=== PATIENT | male | born 1975 | race Two or more races ===

== ENCOUNTER 2025-03-11 07:05 | Emergency (ER) | payer SELFPAY ==
[2025-03-11 07:27] VITALS: BP 128/74; PULSE 76; RESP 16; TEMP 37.2; O2SAT 96; BMI 28.5
--- NOTE | 2025-03-11 07:38 | PD.EDWOUND ---
ED Wound/Laceration-RME/HPI General Chief Complaint: Wound/Laceration Stated Complaint: LEFT ARM LACERATION WHILE AT WORK Time Seen by Provider: 03/11/25 07:08 Source: patient Arrival date/time: 03/11/25 07:05 49-year-old male with no known medical history presents to the emergency room with a chief complaint of a laceration to his left forearm that occurred 30 minutes ago while at work. Mode of arrival: ambulatory Limitations: no limitations Related Data Previous Rx's ?Medication ?Instructions ?Recorded Albuterol Sulfate/Ipratropium NEB 3 ml inhalation [id number] 10 days ##0 09/06/17 * (DUONEB *) Amylase/Lipase/Protease 1 cap PO TIDWM ##14 09/06/17 Cholestyramine/Sucrose 1 pkt PO QDAY ##28 09/06/17 (Cholestyramine Packet) ferrous sulfate 325 mg (65 mg 325 mg PO WBR #28 tabs 09/06/17 iron) tablet,delayed release insulin glargine 100 unit/mL 25 unit (0.25 mL) subcut BID #10 09/06/17 subcutaneous solution (Lantus vials U-100 Insulin) insulin regular human 100 unit/mL 0 unit (0 mL) subcut Q6HR #6 units 09/06/17 injection solution (Novolin R Regular U-100 Insulin) metoprolol tartrate 25 mg tablet 75 mg (3 x 25 mg) PO BID #28 tabs 09/06/17 Allergies Allergy/AdvReac Type Severity Reaction Status Date / Time No Known Allergies Allergy Verified 03/11/25 07:06 Review of Systems Review of Systems Systems Reviewed: All systems reviewed, normal except as documented Constitutional Constitutional: Reports system reviewed and no additional complaints, except as documented, Denies fatigue, Denies fever(s), Denies headache(s) and Denies weakness Eyes Eyes: Reports system reviewed and no additional complaints, except as documented, Denies blurry vision and Denies change in vision ENT Ears, Nose, Mouth, and Throat: Reports system reviewed and no additional complaints, except as documented, Denies otalgia, Denies headache(s), Denies nasal congestion, Denies throat swelling and Denies vertigo Cardiovascular Cardiovascular: Reports system reviewed and no additional complaints, except as documented, Denies chest pain, Denies dyspnea and Denies dyspnea on exertion Respiratory Respiratory: Reports system reviewed and no additional complaints, except as documented, Denies chest congestion, Denies cough, Denies dyspnea, Denies dyspnea on exertion and Denies wheezing Gastrointestinal Gastrointestinal: Reports system reviewed and no additional complaints, except as documented, Denies abdominal pain, Denies cramping, Denies nausea and Denies vomiting Genitourinary Genitourinary: Reports system reviewed and no additional complaints, except as documented, Denies dysuria and Denies hematuria Musculoskeletal Musculoskeletal: Reports system reviewed and no additional complaints, except as documented and Denies back pain Integumentary/Breasts Skin/Breast: Reports system reviewed and no additional complaints, except as documented and Reports wounds Neurologic Neurologic: Reports system reviewed and no additional complaints, except as documented, Denies confusion, Denies headache(s), Denies lack of coordination, Denies vertigo and Denies weakness Psychiatric Psychiatric: Reports system reviewed and no additional complaints, except as documented, Denies anxiety, Denies confusion, Denies depression, Denies paranoia, Denies suicidal ideation and Denies tactile hallucinations Endocrine Endocrine: Reports system reviewed and no additional complaints, except as documented and Denies fatigue Hematologic/Lymphatic Hematologic/Lymphatic: Reports system reviewed and no additional complaints, except as documented and Denies lymphadenopathy Allergic/Immunologic Allergic/Immunologic: Reports system reviewed and no additional complaints, except as documented, Denies throat swelling, Denies urticaria and Denies wheezing Past Medical History Social History SMOKING STATUS: Never smoker ED Exam General Limitations: Present no limitations General appearance: Present alert and in no apparent distress Head Head exam: Present atraumatic Eye Eye exam: Present normal appearance, PERRL and EOMI ENT ENT exam: Present normal exam, normal oropharynx and mucous membranes moist Neck Neck exam: Present normal inspection, full ROM and trachea midline Chest Chest inspection: Present normal inspection and symmetric chest wall rise Respiratory Respiratory exam: Present normal lung sounds bilaterally Cardiovascular Cardiovascular exam: Present regular rate, normal rhythm and normal heart sounds Abdominal Exam Abdominal exam: Present soft and normal bowel sounds Extremities Exam Extremities exam: Present normal inspection and full ROM Back Exam Back exam: Present normal inspection and full ROM Neurological Exam Neurological exam: Present alert, oriented X3 and CN II-XII intact Psychiatric Psychiatric exam: Present normal affect and normal mood Skin Skin exam: Present warm, dry, intact and normal color Expanded Skin Exam Type of lesion: Present laceration Distribution: Present LUE Description: Present tenderness Body image:  1. 2.5 cm laceration to the left forearm Course Quality Measures none Orders Category Date Time Status Set Up Suture Tray STAT Care 03/11/25 07:40 Active Wound Care NOW Care 03/11/25 07:40 Active Lidocaine 1% 20 ml [Xylocaine 1% 20 ML] Med 03/11/25 07:40 Discontinued 20 ml INFL X1 ONE TET,DIP/PERT AC (Adult)-Tdap [Boostrix Adult (Tdap) Med 03/11/25 07:40 Discontinued Vacc] 0.5 ml IMI .ONCE ONE Vital Signs Vital signs: Vital Signs Temperature 98.9 F 03/11/25 07:27 Pulse Rate 76 03/11/25 07:27 Respiratory Rate 16 03/11/25 07:27 Blood Pressure 128/74 03/11/25 07:27 Pulse Oximetry (%) 96 03/11/25 07:27 Oxygen Delivery Method Room Air 03/11/25 07:27 PROCEDURES: Laceration Laceration 1: Site: upper extremity Side (If applicable): left Size (cm): 2.5 Description: linear Depth: simple, single layer Local Anesthetic: lidocaine 1% Amount of anesthesia used (mL): 5 Pre-repair: irrigated extensively Skin layer closed with: nylon Suture size (cm): 4-0 Number of sutures: 5 Technique: simple, interrupted Wound / Laceration MDM Narrative MDM Narrative:: 49-year-old male with no known medical history presents to the emergency room with a chief complaint of a laceration to his left forearm that occurred 30 minutes ago while at work. Patient is hemodynamically stable and in no apparent distress The laceration occured 1 hour ago. 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 There is full ROM. There is no exposed tendons. No foreign bodies. Lidocaine 1% was used for anesthesia. The wound was irrigated extensively with normal saline. 5 sutures were placed. A dressing was placed. There were no complications. Patient was educated to keep the area clean and dry for 24 hours, then clean daily with soap and water. Patient was educated to return for any signs of infection including swelling pain redness pus or fever and to make an appointment with primary care provider in 48 hours. Patient was educated to follow up with primary or return to emergency room for suture removal in the next 7-10 days. Patient data External records reviewed:: [facility] [place] previous records Clinical information provided by:: patient Social determinants that could affect healthcare access:: none Patient has the following chronic illnesses:: No chronic illness How is presenting disease/condition affected by chronic disease/condition?: no chronic disease Evaluation data The following diagnostics were reviewed and interpreted by me:: lab results and radiology exam(s) Lab and/or radiology exams considered but not ordered:: Labs and radiology exams considered and ordered Interpretation Summary: N/A Medications / Prescriptions Medications or Prescriptions considered but not ordered:: Medication given Medication administrations:: Medication Administration History Discontinued Medications Diphtheria/Tetanus/Acell Pertussis (Diphth,Pertuss(Acell),Tet Vac 0.5 Ml Syr- Adult) 0.5 ml IMi .ONCE ONE Stop: 03/11/25 07:41 Last Admin: 03/11/25 07:49 Dose: 0.5 ml Documented By: ANU Lidocaine HCl (Lidocaine Hcl 1% 20 Ml Vial) 20 ml INFL X1 ONE Stop: 03/11/25 07:41 Last Admin: 03/11/25 09:01 Dose: 20 ml Documented By: ANU Medication given Consultations Consultation(s) initiated? (list below): No Diagnosis Wound Differential Diagnosis: laceration, abscess and abrasion Most likely diagnosis given after review of the tests above:: Laceration Admission Indicated Admission indicated?: not indicated Admission Request Was there a request for admission?: No Disposition Plan Disposition Plan: Discharge Discharge Attestation Discharge Attestation: The patient and all family members were given an opportunity to ask questions and understood the discharge instructions. Discharge instructions specifically effects, indications for sooner follow up or return to the emergency department, and the expected course of current diagnosis. Patient condition: Stable Discharge Plan Plan Patient Disposition: HOME (Self Care) Discharge Disposition comment: Stable Prescriptions/Referrals Prescriptions/Med Rec: No Action Albuterol Sulfate/Ipratropium NEB * (DUONEB *) 3 ML AMPUL.NEB 3 ml Inhalation [id number] 10 Days Qty: 0 0RF Amylase/Lipase/Protease 1 CAP 1 cap PO TIDWM Qty: 14 0RF insulin glargine [Lantus U-100 Insulin] 100 U/ML solution 25 unit Sub-Q BID Qty: 10 0RF insulin regular human [Novolin R Regular U100 Insulin] 1 UNIT/0.01 ML unit 0 unit Sub-Q Q6HR Qty: 6 0RF ferrous sulfate 325 MG tablet 325 mg PO WBR Qty: 28 0RF metoprolol tartrate 25 MG tablet 75 mg PO BID Qty: 28 0RF Cholestyramine/Sucrose (Cholestyramine Packet) 4 G/PKT packet 1 pkt PO QDAY Qty: 28 0RF Problem List Clinical Impression: Laceration Patient/Caregiver Discharge Instructions Additional Instructions: Por favor, consulte con duque m?dico de cabecera en las pr?ximas 24 a 48 horas. Duque laceraci?n fue cerrada y aproximada. Por favor, mantenga la shyann limpia y seca elvis las pr?ximas 24 horas. Despu?s, puede limpiarla con agua y jab?n. Puede regresar en 7 a 10 d?as para que le retiren los puntos. Si observa cualquier signo de empeoramiento de los signos o s?ntomas, acuda a urgencias de inmediato. Print Language: Chinese Stand Alone Forms: Ania Award Info., Patient Portal Info Letter PA/[employer] Supervising Physician PA/[employer] Supervising Physician: Dr. Fuentes
[2025-03-11] MEDS: DIPHTH,PERTUSS(ACELL),TET VAC 0.5 ML SYR- ADULT IMi (07:49)
[2025-03-11] MEDS: LIDOCAINE HCL 1% 20 ML VIAL INFL (09:01)
== END 2025-03-11 09:20 | disposition home or self-care (01) ==
LOC: SERX 09:06
PROVIDERS: Emergency Provider Family Medicine
DX: S51.812A Laceration without foreign body of left forearm, initial encounter (principal); X58.XXXA Exposure to other specified factors, initial encounter; Y99.0 Civilian activity done for income or pay; Z23 Encounter for immunization
CPT/HCPCS: 12001; 90471; 90715; 99283; J3490